=== PATIENT | male | born 1970 | race Caucasian/White ===

== ENCOUNTER 2020-10-30 18:37 | Emergency (ER) | payer OTHER ==
[~2020-10-30] VITALS: Ht 172.7 cm; Wt 78.0 kg
[~2020-10-30 18:37] MED LIST: FLOMAX0.4 MG PO; LEVOTHYROXINE 0.1 MG PO; NORCO 5-325 TA1 EAC1 PO; ZANTAC 150MG T150 MG PO
[2020-10-30 20:07] LABS: ABSOLUTE BASOPHILS 0.1 thou/uL (0.0-0.2); ABSOLUTE EOSINOPHILS 0.1 thou/uL (0.0-0.7); ABSOLUTE MONOCYTES 0.7 thou/uL (0.0-1.2); ABSOLUTE NEUTROPHILS 5.9 thou/uL (1.6-8.1); BASOPHILS 0.7 %; EOSINOPHILS 1.8 %; HEMATOCRIT 40.9 % (42.0-52.0); HEMOGLOBIN 14.1 gm/dL (14.0-18.0); MCH 32.5 pg (26.0-34.0); MCHC 34.5 g/dL (28.0-37.0); MCV 94.2 fL (80.0-100.0); MONOCYTES 9.3 %; MPV 8.7 fl. (7.2-11.1); NUCLEATED RBCS 0 /100WBC; PLATELET COUNT* 175 thou/uL (150-400); POLYS 75.2 %; RBC 4.34 mil/uL (4.50-6.00); RDW-CV 13.6 % (10.5-14.5); WBC 7.8 thou/uL (4.0-11.0)
[2020-10-30 20:13] LABS: CALCIUM 9.3 mg/dL (8.5-10.1); CREATININE 1.2 mg/dL (0.6-1.3); POTASSIUM 3.9 mmol/L (3.5-5.1)
[2020-10-30 20:17] LABS: TOTAL BILIRUBIN 0.1 mg/dL (<0.1-1.0); TOTAL PROTEIN 7.1 g/dL (6.4-8.2)
[2020-10-30] MEDS ORDERED: CARAFATE 1 GM TA1 GM PO (23:00)
[2020-10-30] MEDS ORDERED: OMEPRAZOLE40 MG PO (23:00)
[2020-10-30] MEDS ORDERED: HYDROCODON-ACE1 EAC7 PO (23:00)
[2020-10-30] MEDS ORDERED: ZOFRAN ODT4 MG PO ×2 (23:00→23:07)
[2020-10-30 23:31] VITALS: BP 139/61
--- NOTE | 2020-10-31 09:05 | EKG ---
[place] [address] ELECTROCARDIOGRAM REPORT Name: MEGHAN MAC Room: [facility]#: [id number] Admission: 10/30/20 Attend Phys: Discharge: 10/30/20 Date of : 66 Date of Service: 10/30/201843 Report #: [id number] THIS REPORT FOR: //name// [facility] ED Test Date: 2020-10-30 Test Time: 18:44:39 Pat Name: MEGHAN MAC Department: Room: Gender: Director Internal Audit: [facility] : 1970 Requested By: Tanika Mg Order Number: [id number] MD: Gene Turner Measurements Intervals [place] Rate: 70 P: 10 MD: 113 QRS: 37 QRSD: 98 T: 5 QT: 383 QTc: 414 Interpretive Statements Sinus rhythm Borderline short MD interval No previous ECG available for comparison Electronically Signed On 10-31-2020 9:04:58 CDT by Gene Turner [email or web address] <ELECTRONICALLY SIGNED> By: Gene Turner MD, [facility] 10/31/20 0904 1844 1844 Gene Turner MD, [facility] /EPI
== END 2020-10-30 23:31 | disposition home or self-care (01) ==
LOC: M.ERS 18:37
PROVIDERS: Personal Emergency Response Attendant
DX: K27.9 Peptic ulcer, site unspecified, unspecified as acute or chronic, without hemorrhage or perforation (principal); Z87.898 Personal history of other specified conditions

== ENCOUNTER 2020-12-10 18:20 | Emergency (ER) | payer OTHER ==
[~2020-12-10] VITALS: Ht 172.7 cm; Wt 79.4 kg
[~2020-12-10 18:20] MED LIST changes: +CARAFATE 1 GM TA1 GM PO; +HYDROCODON-ACE1 EAC7 PO; +OMEPRAZOLE40 MG PO; +ZOFRAN ODT4 MG PO
[2020-12-10] MEDS ORDERED: TRAMADOL 50 MG50 MG PO (18:36)
[2020-12-10] MEDS ORDERED: MEDROLDOSEPACK PO (18:36)
[2020-12-10] MEDS ORDERED: PROTONIX40 MG PO (18:36)
[2020-12-10 18:48] VITALS: BP 156/88
== END 2020-12-10 18:49 | disposition home or self-care (01) ==
LOC: M.ERS 18:20
DX: M54.12 Radiculopathy, cervical region (principal); G89.29 Other chronic pain

== ENCOUNTER 2021-01-26 11:45 | Emergency (ER) | payer OTHER ==
[~2021-01-26] VITALS: Ht 180.3 cm; Wt 79.4 kg
[~2021-01-26 11:45] MED LIST changes: +MEDROLDOSEPACK PO; +PROTONIX40 MG PO; +TRAMADOL 50 MG50 MG PO
[2021-01-26] MEDS ORDERED: ONDANSETRON ODT4 MG PO (15:21)
[2021-01-26] MEDS ORDERED: APAP W/CODEINE1 TA2 PO (15:21)
[2021-01-26] MEDS ORDERED: MEDROLDOSEPACK PO (15:21)
[2021-01-26] MEDS ORDERED: FLEXERIL PO (15:22)
[2021-01-26 15:46] VITALS: BP 148/72
== END 2021-01-26 15:47 | disposition home or self-care (01) ==
LOC: M.ERS 11:45
DX: S06.0X9A Concussion with loss of consciousness of unspecified duration, initial encounter (principal); S16.1XXA Strain of muscle, fascia and tendon at neck level, initial encounter; X58.XXXA Exposure to other specified factors, initial encounter; Y93.89 Activity, other specified; Y92.89 Other specified places as the place of occurrence of the external cause; Y99.8 Other external cause status